=== PATIENT | male | born 1960 | race Caucasian/White ===

== ENCOUNTER 2019-01-03 06:41 | Inpatient (IN) | payer MEDICAID ==
[2019-01-03] MEDS: SOD CHLORIDE 0.9% 1,000 ML IV ×2 (07:06→08:04)
[2019-01-03] MEDS: ETOMIDATE 20 MG INJ IV (07:07)
[2019-01-03] MEDS: SUCCINYLCHOLINE CHLORIDE 100 MG/5 ML SYG IV (07:08)
[2019-01-03] MEDS ORDERED: PROPOFOL 0 ML (07:13)
[2019-01-03 07:19] LABS: ADD UMIC NO; UR ASCORBIC ACID NEGATIVE (NEGATIVE); UR BILIRUBIN (Dip) NEGATIVE (NEGATIVE); UR BLOOD (Dip) NEGATIVE (NEGATIVE); UR CLARITY CLEAR (CLEAR); UR COLOR YELLOW (YELLOW); UR GLUCOSE (Dip) NEGATIVE (NEGATIVE); UR KETONES (Dip) NEGATIVE (NEGATIVE); UR LEUKOCYTE ESTERASE (Dip) NEGATIVE Leu/ul (NEGATIVE); UR NITRITE (Dip) NEGATIVE (NEGATIVE); UR SPECIFIC GRAVITY (Dip) 1.015 (1.003-1.030); UR TOTAL PROTEIN (Dip) NEGATIVE (NEGATIVE); UR UROBILINOGEN (Dip) NEGATIVE (NEGATIVE)
[2019-01-03 07:32] LABS: ADD MAN DIFF? NO
[2019-01-03 07:34] LABS: BASOPHIL # 0.1 10^3/ul (0.0-0.1); BASOPHILS % 0.7 % (0.0-2.0); EOSINOPHILS # 0.1 10^3/ul (0.0-0.5); EOSINOPHILS % 1.2 % (0.0-7.0); HEMATOCRIT 44.3 % (42.0-52.0); HEMOGLOBIN 14.4 g/dl (14.0-18.0); LYMPHOCYTES # 2.7 10^3/ul (0.8-2.9); LYMPHOCYTES % 37.2 % (15.0-51.0); MEAN CORPUSCULAR HEMOGLOBIN 28.2 pg (29.0-33.0); MEAN CORPUSCULAR HGB CONC 32.5 g/dl (32.0-37.0); MEAN CORPUSCULAR VOLUME 86.9 fl (82.0-101.0); MEAN PLATELET VOLUME 10.5 fl (7.4-10.4); MONOCYTE # 0.6 10^3/ul (0.3-0.9); MONOCYTES % 8.1 % (0.0-11.0); NEUTROPHIL # 3.9 10^3/ul (1.6-7.5); NEUTROPHILS % 52.5 % (39.0-77.0); PLATELET COUNT 255 10^3/UL (140-415); RED CELL DISTRIBUTION WIDTH 13.4 % (11.5-14.5)
[2019-01-03 07:34] LABS: WHITE BLOOD COUNT 7.3 10^3/ul (4.8-10.8)
[2019-01-03] MEDS: PROPOFOL 100 ML IV (07:36)
[2019-01-03 07:46] LABS: ALANINE AMINOTRANSFERASE 22 IU/L (13-69); ALKALINE PHOSPHATASE 67 IU/L (42-121); ANION GAP 9 (5-13); ASPARTATE AMINO TRANSFERASE 23 IU/L (15-46); BILIRUBIN,INDIRECT 0.5 mg/dl (0-1.1); BILIRUBIN,TOTAL 0.5 mg/dl (0.2-1.3); BLOOD UREA NITROGEN 22 mg/dl (7-20); CALCIUM 9.3 mg/dl (8.4-10.2); CARBON DIOXIDE 26 mmol/L (21-31); CHLORIDE 110 mmol/L (97-110); CREATININE 0.98 mg/dl (0.61-1.24); Estimated GFR > 60 mL/min (>60); GLUCOSE 125 mg/dl (70-220); POTASSIUM 4.1 mmol/L (3.5-5.1); SODIUM 145 mmol/L (135-144)
[2019-01-03 07:47] LABS: ALBUMIN 4.2 g/dl (3.3-4.9); CREATINE KINASE 65 IU/L (23-200); TOTAL PROTEIN 7.7 g/dl (6.1-8.1)
[2019-01-03 07:55] LABS: INR 0.92; PROTIME 12.5 Sec (11.9-14.9)
[2019-01-03 07:56] LABS: PARTIAL THROMBOPLASTIN TIME 30.9 Sec (23.0-35.0)
[2019-01-03 07:57] LABS: CK INDEX 2.3; CK-MB 1.51 ng/ml (0.0-2.4); TROPONIN-I < 0.012 ng/ml (0.000-0.120)
[2019-01-03 07:58] LABS: BARBITURATES Negative (NEGATIVE); BENZODIAZEPINES Negative (NEGATIVE); CANNABINOIDS Negative (NEGATIVE); COCAINE Negative (NEGATIVE); OPIATES Negative (NEGATIVE)
[2019-01-03 08:01] LABS: ACETAMINOPHEN < 10.0 ug/ml (10.0-30.0); ETHANOL < 10.0 mg/dl (0-0); SALICYLATE < 1.0 mg/dl (5.0-30.0)
[2019-01-03] MEDS: MIDAZOLAM 1 MG/ML 2 ML INJ IM (08:04)
[2019-01-03] MEDS: PROPOFOL 200 MG INJ IV ×2 (08:05→08:37)
[2019-01-03] MEDS: MIDAZOLAM 1 MG/ML 2 ML INJ IV (08:07)
[2019-01-03 08:12] LABS: AMPHETAMINE/METHAMPHETAMINE POSITIVE (NEGATIVE)
[2019-01-03] MEDS: LORAZEPAM 2 MG INJ IV (08:41)
[2019-01-03] MEDS: MIDAZOLAM (DRIP) 50 mg/50 mL 50 ML IV ×3 (09:24→22:46)
[2019-01-03 10:23] LABS: AADO2 Arterial 276.6 mmHg (7.0-24.0); Arterial COHb 0.2 % (0.0-3.0); Arterial Fraction of Oxyhgb 98.5 % (93.0-99.0); Arterial HCO3 23.7 mmol/L (22.0-26.0); Arterial MetHb 0.3 % (0.0-1.5); Arterial pCO2 44.1 mmhg (35-45); MODE VENT - AC; Site LB
[2019-01-03] MEDS ORDERED: FENTAnyl (DRIP) 1000 mcg/100mL 100 ML IV (12:30)
[2019-01-03] MEDS: DOCUSATE SODIUM 100 MG CAP PO (14:53)
[2019-01-03] MEDS ORDERED: ACETAMINOPHEN 650MG/20.3ML CUP PO (15:00)
[2019-01-03] MEDS ORDERED: ONDANSETRON 4 MG INJ IV (15:00)
[2019-01-03] MEDS: DEXTROSE 5%-0.45% NACL 1,000 ML IV ×2 (15:29→22:45)
[2019-01-03 15:46] LABS: HEMOGLOBIN A1C 5.5 % (0-5.9)
[2019-01-03] MEDS ORDERED: SUCCINYLCHOLINE CHLORIDE 100 MG/5 ML SYG IV (21:00)
[2019-01-03] MEDS ORDERED: PROPOFOL 200 MG INJ (21:00)
[2019-01-03] MEDS ORDERED: MIDAZOLAM 1 MG/ML 2 ML INJ (21:00)
[2019-01-03] MEDS ORDERED: ETOMIDATE 20 MG INJ (21:00)
[2019-01-03] MEDS: FAMOTIDINE 20 MG INJ IV (21:13)
[2019-01-03 22:58] LABS: CREATINE KINASE 110 IU/L (23-200)
[2019-01-03 23:09] LABS: CK INDEX 1.9; CK-MB 2.09 ng/ml (0.0-2.4); TROPONIN-I 0.089 ng/ml (0.000-0.120)
[2019-01-04] MEDS: DOCUSATE SODIUM 100 MG CAP PO ×2 (02:44→15:00)
[2019-01-04 05:02] LABS: ADD MAN DIFF? NO
[2019-01-04 05:10] LABS: BASOPHILS % 0.2 % (0.0-2.0); EOSINOPHILS # 0.1 10^3/ul (0.0-0.5); EOSINOPHILS % 0.6 % (0.0-7.0); HEMATOCRIT 40.3 % (42.0-52.0); HEMOGLOBIN 13.1 g/dl (14.0-18.0); LYMPHOCYTES # 1.9 10^3/ul (0.8-2.9); LYMPHOCYTES % 18.3 % (15.0-51.0); MEAN CORPUSCULAR HEMOGLOBIN 28.1 pg (29.0-33.0); MEAN CORPUSCULAR HGB CONC 32.5 g/dl (32.0-37.0); MEAN CORPUSCULAR VOLUME 86.5 fl (82.0-101.0); MEAN PLATELET VOLUME 10.9 fl (7.4-10.4); MONOCYTE # 0.8 10^3/ul (0.3-0.9); NEUTROPHIL # 7.7 10^3/ul (1.6-7.5); NEUTROPHILS % 72.6 % (39.0-77.0); PLATELET COUNT 206 10^3/UL (140-415); RED BLOOD COUNT 4.66 10^6/ul (4.70-6.10); RED CELL DISTRIBUTION WIDTH 13.5 % (11.5-14.5)
[2019-01-04 05:10] LABS: WHITE BLOOD COUNT 10.5 10^3/ul (4.8-10.8)
[2019-01-04] MEDS: LORAZEPAM 2 MG INJ IV (05:14)
[2019-01-04] MEDS: MIDAZOLAM (DRIP) 50 mg/50 mL 50 ML IV (05:23)
[2019-01-04] MEDS: DEXTROSE 5%-0.45% NACL 1,000 ML IV ×4 (05:23→23:59)
[2019-01-04 05:48] LABS: CREATINE KINASE 82 IU/L (23-200)
[2019-01-04 06:00] LABS: CK INDEX 1.5; CK-MB 1.27 ng/ml (0.0-2.4); TROPONIN-I 0.074 ng/ml (0.000-0.120)
[2019-01-04 07:57] LABS: ALANINE AMINOTRANSFERASE 31 IU/L (13-69); ALBUMIN 3.2 g/dl (3.3-4.9); ALBUMIN/GLOBULIN RATIO 1.03; ALKALINE PHOSPHATASE 58 IU/L (42-121); ANION GAP 6 (5-13); ASPARTATE AMINO TRANSFERASE 40 IU/L (15-46); BILIRUBIN,INDIRECT 0.7 mg/dl (0-1.1); BILIRUBIN,TOTAL 0.7 mg/dl (0.2-1.3); BLOOD UREA NITROGEN 7 mg/dl (7-20); CALCIUM 8.2 mg/dl (8.4-10.2); CARBON DIOXIDE 26 mmol/L (21-31); CHLORIDE 108 mmol/L (97-110); CREATININE 0.69 mg/dl (0.61-1.24); Estimated GFR > 60 mL/min (>60); GLUCOSE 122 mg/dl (70-220); MAGNESIUM 1.8 mg/dl (1.7-2.5); PHOSPHORUS 3.6 mg/dl (2.5-4.9); POTASSIUM 3.6 mmol/L (3.5-5.1); SODIUM 140 mmol/L (135-144); TOTAL PROTEIN 6.3 g/dl (6.1-8.1)
[2019-01-04] MEDS: DEXMEDETOMIDINE HCL 200 MCG in SOD CHLORIDE 0.9% 48 ML IV ×3 (08:17→18:33)
[2019-01-04] MEDS: FAMOTIDINE 20 MG INJ IV ×2 (09:00→20:38)
[2019-01-04 12:34] LABS: HIV 1&2 ANTIBODY NEGATIVE (NEGATIVE)
[2019-01-04] MEDS: SOD CHLORIDE 0.9% 500 ML IV (15:08)
[2019-01-04] MEDS ORDERED: NORepinephrine 8MG/250 ML (PMX 250 ML IV (16:30)
[2019-01-04] MEDS: LIDOCAINE 1% (MPF) 5 ML VIAL SC (17:10)
[2019-01-04] MEDS: NACL 3% FOR INHALATION 15 ML NEBU NEB (21:00)
[2019-01-04 23:31] LABS: ADD UMIC YES; UR ASCORBIC ACID NEGATIVE (NEGATIVE); UR BILIRUBIN (Dip) NEGATIVE (NEGATIVE); UR BLOOD (Dip) 2+ mg/dL (NEGATIVE); UR CLARITY CLEAR (CLEAR); UR COLOR YELLOW (YELLOW); UR GLUCOSE (Dip) NEGATIVE (NEGATIVE); UR KETONES (Dip) NEGATIVE (NEGATIVE); UR LEUKOCYTE ESTERASE (Dip) NEGATIVE Leu/ul (NEGATIVE); UR MUCUS FEW /HPF (NONE SEEN); UR NITRITE (Dip) NEGATIVE (NEGATIVE); UR RBC 18 /HPF (0-5); UR SPECIFIC GRAVITY (Dip) 1.012 (1.003-1.030); UR TOTAL PROTEIN (Dip) NEGATIVE (NEGATIVE); UR UROBILINOGEN (Dip) 1+ mg/dL (NEGATIVE); UR WBC 1 /HPF (0-5)
[2019-01-04] MEDS: ACETAMINOPHEN 1000MG/100ML IV 100 ML IVPB (23:57)
[2019-01-05] MEDS: DOCUSATE SODIUM 100 MG CAP PO ×2 (02:21→09:45)
[2019-01-05] MEDS ORDERED: ACETAMINOPHEN 650MG/20.3ML CUP NGT (03:00)
[2019-01-05 04:56] LABS: ADD MAN DIFF? NO
[2019-01-05 04:59] LABS: WHITE BLOOD COUNT 9.8 10^3/ul (4.8-10.8)
[2019-01-05 04:59] LABS: BASOPHILS % 0.3 % (0.0-2.0); EOSINOPHILS # 0.1 10^3/ul (0.0-0.5); EOSINOPHILS % 0.7 % (0.0-7.0); HEMATOCRIT 35.4 % (42.0-52.0); HEMOGLOBIN 11.4 g/dl (14.0-18.0); LYMPHOCYTES % 20.8 % (15.0-51.0); MEAN CORPUSCULAR HEMOGLOBIN 28.3 pg (29.0-33.0); MEAN CORPUSCULAR HGB CONC 32.2 g/dl (32.0-37.0); MEAN CORPUSCULAR VOLUME 87.8 fl (82.0-101.0); MEAN PLATELET VOLUME 10.9 fl (7.4-10.4); MONOCYTES % 10.2 % (0.0-11.0); NEUTROPHIL # 6.6 10^3/ul (1.6-7.5); NEUTROPHILS % 67.6 % (39.0-77.0); PLATELET COUNT 171 10^3/UL (140-415); RED BLOOD COUNT 4.03 10^6/ul (4.70-6.10); RED CELL DISTRIBUTION WIDTH 13.3 % (11.5-14.5)
[2019-01-05 05:22] LABS: ALANINE AMINOTRANSFERASE 19 IU/L (13-69); ALBUMIN 2.8 g/dl (3.3-4.9); ALBUMIN/GLOBULIN RATIO 1.12; ALKALINE PHOSPHATASE 47 IU/L (42-121); ANION GAP 3 (5-13); ASPARTATE AMINO TRANSFERASE 16 IU/L (15-46); BILIRUBIN,INDIRECT 0.8 mg/dl (0-1.1); BILIRUBIN,TOTAL 0.8 mg/dl (0.2-1.3); BLOOD UREA NITROGEN 8 mg/dl (7-20); CALCIUM 8.2 mg/dl (8.4-10.2); CARBON DIOXIDE 26 mmol/L (21-31); CHLORIDE 109 mmol/L (97-110); CREATININE 0.69 mg/dl (0.61-1.24); Estimated GFR > 60 mL/min (>60); GLUCOSE 119 mg/dl (70-220); POTASSIUM 3.7 mmol/L (3.5-5.1); SODIUM 138 mmol/L (135-144); TOTAL PROTEIN 5.3 g/dl (6.1-8.1)
[2019-01-05] MEDS: FAMOTIDINE 20 MG INJ IV (07:44)
[2019-01-05] MEDS: DEXTROSE 5%-0.45% NACL 1,000 ML IV (13:23)
== END 2019-01-05 13:40 | disposition left against medical advice (07) | DRG 917 ==
LOC: E/R 06:41 → ICU 09:27
PROC: 0BH17EZ Insertion of Endotracheal Airway into Trachea, Via Natural or Artificial Opening (ICD-10-PCS; principal; 2019-01-03)
PROC: 5A1945Z Respiratory Ventilation, 24-96 Consecutive Hours (ICD-10-PCS; 2019-01-03)
DX: T41.291A Poisoning by other general anesthetics, accidental (unintentional), initial encounter (principal); G92 Toxic encephalopathy; J96.00 Acute respiratory failure, unspecified whether with hypoxia or hypercapnia; F19.10 Other psychoactive substance abuse, uncomplicated; Y92.89 Other specified places as the place of occurrence of the external cause
CPT/HCPCS: 31500; 36415; 36569; 36600; 70450; 71045; 76937; 80053; 80307; 81001; 81003; 82550; 82553; 82803; 83036; 83735; 84100; 84484; 85025; 85610; 85730; 86703; 87040-91; 87081; 87086; 89220; 93005; 93306; 94002; 94003; 94770; 99291-25